=== PATIENT | female | born 1945 | race African-American/Black ===

== ENCOUNTER 2017-01-05 17:53 | Outpatient (CLI) | payer OTHER ==
[2015-10-10 03:47] VITALS: BMI 31.3
== END 2017-01-05 17:54 | disposition home or self-care (01) ==
LOC: CAR 17:53
PROVIDERS: ATTEND Family Medicine
DX: G47.33 Obstructive sleep apnea (adult) (pediatric) (principal)
CPT/HCPCS: 95810

== ENCOUNTER 2018-01-11 07:36 | Outpatient (CLI) ==
[2015-10-10 03:47] VITALS: BMI 31.3
--- NOTE | 2018-01-11 09:51 | CT ---
EXAM: CT abdomen pelvis with contrast HISTORY: Diverticulitis COMPARISON: None TECHNIQUE: CT abdomen pelvis performed with intravenous contrast. Coronal and sagittal reformatted images obtained. FINDINGS: Mild bibasilar subsegmental atelectasis and/or scarring. No free air. No acute abnormali ties of the bones. Degenerative change in the spine. Grade 1 anterolisthesis of L4 on L5. Heart no rmal in size. Liver appears normal. Gallbladder appears normal. Pancreas appears normal. Spleen a ppears normal. Adrenals appear normal. Kidneys appear normal. Aorta normal in caliber. Mild to mo derate atherosclerosis. Bladder unremarkable. Calcified uterine fibroid measuring 1.9 cm. Small fa t-containing periumbilical hernia. No ascites. Stomach appears normal. No dilated loops small bow el. Appendix appears normal. There are colonic diverticula. There are are mild stranding changes ab out diverticula in the proximal sigmoid colon. Several top normal size nonspecific left pelvic/criss lonic lymph nodes present. IMPRESSION: 1. Unexpected finding: Colonic diverticulosis with probable mild diverticulitis involving the sigmoi d colon. 2. Several top normal sized nonspecific left pelvic/pericolonic lymph nodes present. Recommend patie nt up-to-date on colonoscopy if not recently performed, once symptomatology has resolved.
== END 2018-01-11 07:37 | disposition home or self-care (01) ==
LOC: RAD 07:36
PROVIDERS: ATTEND Family Medicine
DX: K57.32 Diverticulitis of large intestine without perforation or abscess without bleeding (principal)
CPT/HCPCS: 36415; 82565